=== PATIENT | male | born 1960 | race Caucasian/White ===

== ENCOUNTER → 2016-11-07 | Outpatient (CLI) | payer OTHER ==
[~2016-11-07] MED LIST: AMLODIPINE BESY10 MG PO; COREG PO; COUMADIN6 MG PO; DYAZIDE 37.5/251 CAP PO; MOBIC PO; NORCO1 TAB 10/3 PO; SKELAXIN PO; VALSARTAN320 MG PO
--- NOTE | ~2016-11-07 | US85 ---
STS. [facility] A Service of [facility] & [facility] / [facility] RADIOLOGY TEXT RESULTS PATIENT: TAMI BURNS LOCATION: SNIV : 58 UNIT #: [id number] AGE: [address]: Curt Gilmore MD SEX: M ORDER DR: [id number] [address] [address] [id number] O MR#: [id number] Acc #: [id number] NAME: TAMI BURNS. : 1960 SEX: M STUDY DATE/TIME: 11/07/2016 11:20 UNIT: SNIV ROOM: STUDY DESCRIPTION: [facility] Veins Unilat or Ltd Stdy Attending Physician: Curt Gilmore M.D. Referring Physician: Curt Gilmore M.D. Ordering Physician: Curt Gilmore M.D. Primary Care Physician: Jen Gannon M.D. MEDICAL IMAGING REPORT This report is preliminary unless electronic signature is present. 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 History of previous lower extremity deep vein thrombosis. TECHNIQUE Venous ultrasound examination of the right lower extremity was performed using grayscale, spectral Doppler and color flow Doppler imaging. FINDINGS The examination is negative. There is no evidence of right lower extremity deep venous thrombus from the groin to the lower calf. Visualized greater saphenous vein is also patent. IMPRESSION Negative examination. No evidence of right lower extremity deep venous thrombosis. Dictated by... Fransico Faustin M.D. THIS IS AN ELECTRONICALLY VERIFIED REPORT Fransico Faustin M.D. at 11/08/2016 7:35 AM KRT/to TD: 11/07/2016 16:48 JOB #: [id number] MEDICAL IMAGING REPORT
[2016-11-07 12:13] LABS: INR 1.6; PROTHROMBIN TIME (PATIENT) 18.7 SECONDS (9.5-12.4)
== END | disposition home or self-care (01) ==
LOC: SLAB 11:00
PROVIDERS: Orthopaedic Surgery
DX: Z51.81 Encounter for therapeutic drug level monitoring (principal); Z96.651 Presence of right artificial knee joint; Z79.01 Long term (current) use of anticoagulants; Z86.718 Personal history of other venous thrombosis and embolism
CPT/HCPCS: 36415; 85610; 93971